=== PATIENT | female | born 1945 | race African-American/Black ===

== ENCOUNTER → 2016-12-08 | Outpatient (CLI) | payer MEDICARE, BC ==
[~2016-12-08] MED LIST: BRIMONIDINE TART5 ML OP; COMBIGAN EYE DRO5 ML OP; KLONOPIN PO; LATANOPROST2.5 ML OU; LEVOTHYROXINE75 MCG PO; MECLIZINE HCL12.5 M2 PO; MEDROL DOSEPAK4 MG PO; PLAVIX PO; SYNTHROID75 MCG PO; TIMOPTIC 0.5% OP5 M2 OD; TIMOPTIC2.5 ML OU; VITAMIN D-32000 UNI1 PO; VITAMIN D2000 UNI1 PO
--- NOTE | ~2016-12-08 | MY11 ---
[facility] A Service of [facility] & [facility] RADIOLOGY TEXT RESULTS PATIENT: DEVENDRA HARDY LOCATION: [facility] : [birth year] UNIT #: [id number] AGE: [address]: Agatha Avila MD SEX: F ORDER DR: [id number] [facility] [address] [place], [place] [address] [id number] O MR#: [id number] Acc #: [id number] NAME: DEVENDRA HARDY : 1945 SEX: F STUDY DATE/TIME: 12/08/2016 12:16 UNIT: [facility] ROOM: STUDY DESCRIPTION: MY Mammogram Screening Dig Wilfredo Attending Physician: Agatha Avila M.D. Referring Physician: Agatha Avila M.D. Ordering Physician: Agatha Avila M.D. Primary Care Physician: Agatha Avila M.D. MEDICAL IMAGING REPORT This report is preliminary unless electronic signature is present EXAM Bilateral digital screening mammogram with CAD. COMPARISON December 05, 2015, November 29, 2019, November 23, 2013, February 27, 2014, August 19, 2010. INDICATION 71-year-old asymptomatic female. No personal or family history of breast cancer. FINDINGS There are scattered fibroglandular densities. In the inferior posterior third of the right breast, only seen on the MLO view, there is an incompletely included asymmetry, not seen on prior exams, measuring up to approximately 4 mm. In the medial posterior third of the left breast only seen on the CC projection, there is a separate, possibly developing asymmetry or possibly a previous excluded asymmetry measuring up to 6 mm. IMPRESSION 1. Right breast asymmetry only seen on MLO view in the inferior aspect incompletely included. Further evaluation with spot compression right MLO view is recommended in addition to full field ML view, possibly followed by right breast ultrasound. 2. Left breast asymmetry only seen on CC view, developing from comparisons. Further evaluation with spot compression CC view as well as full field rolled medial and rolled lateral CC views is recommended, possibly followed by left breast ultrasound. Patients over the age of 40 are entered into a reminder system with target due date for the next mammogram. A result letter will also be sent to the patient. [facility] A Service of [facility] RADIOLOGY TEXT RESULTS PATIENT: DEVENDRA HARDY LOCATION: [facility] : [birth year] UNIT #: [id number] AGE: [address]: Agatha Avila MD SEX: F ORDER DR: BIRADS: 0 Incomplete; need additional imaging evaluation and/or prior mammograms for comparison. Dictated by... Ant Joseph M.D. THIS IS AN ELECTRONICALLY VERIFIED REPORT Ant Joseph M.D. at 12/10/2016 10:54 AM EDENILSON/lexie TD: 12/08/2016 15:52 JOB #: [id number] MEDICAL IMAGING REPORT Page 1 of 1 COPY
== END | disposition home or self-care (01) ==
LOC: CWCC 11:43
DX: Z12.31 Encounter for screening mammogram for malignant neoplasm of breast (principal); N64.89 Other specified disorders of breast
CPT/HCPCS: G0202

== ENCOUNTER → 2016-12-11 | Outpatient (CLI) | payer MEDICARE, BC ==
--- NOTE | ~2016-12-11 | MY6 ---
[facility] A Service of [facility] & [facility] RADIOLOGY TEXT RESULTS PATIENT: DEVENDRA HARDY LOCATION: [facility] : [birth year] UNIT #: [id number] AGE: [address]: Agatha Avila MD SEX: F ORDER DR: [id number] [facility] [address] [place], [place] [address] [id number] O MR#: [id number] Acc #: [id number] NAME: DEVENDRA HARDY : 1945 SEX: F STUDY DATE/TIME: 12/11/2016 12:40 UNIT: [facility] ROOM: STUDY DESCRIPTION: MY Mammogram Dx Dig Wilfredo Attending Physician: Agatha Avila M.D. Referring Physician: Agatha Avila M.D. Ordering Physician: Agatha Avila M.D. Primary Care Physician: Agatha Avila M.D. MEDICAL IMAGING REPORT This report is preliminary unless electronic signature is present EXAM Additional views of both breasts and a targeted left breast ultrasound, 12/11/2016. INDICATION Asymmetries in both breast on recent screening mammogram. TECHNIQUE Compression MLO and true lateral views of the right breast were performed. On the left, rolled CC views were performed along with a compression CC view. COMPARISONS 12/08/2016, 09/29/2013, 08/19/2010. FINDINGS MAMMOGRAPHIC FINDINGS Right breast: The asymmetry in the lower posterior hemisphere right breast has no correlate on the additional views. The patient denies any change or palpable abnormality. Given the lack of a mammographic correlate and lack of palpable area of concern, targeted ultrasound was not performed as it was not thought to offer additional diagnostic benefit. Left breast: The asymmetry in the posteromedial hemisphere left breast appears less conspicuous on spot compression. It is questionably present on the rolled views. Targeted ultrasound was thereafter performed. ULTRASOUND FINDINGS Left breast: Imaging of the left breast was performed initially by the technologist and then the patient was rescanned in my presence. Imaging of the medial hemisphere left breast from 12 o'clock to 6 o'clock is negative. There is a benign cyst in the subareolar left breast also seen on prior mammogram studies but there is no suspicious nodule, mass, or STS. [facility] A Service of [facility] RADIOLOGY TEXT RESULTS PATIENT: DEVENDRA HARDY LOCATION: [facility] : [birth year] UNIT #: [id number] AGE: [address]: Agatha Aivla MD SEX: F ORDER DR: area of persistent abnormal shadowing. Imaging findings are concordant with mammography. Absent new or worsening symptoms in either breast, patient should return for a screening mammogram in 1 year. Findings and recommendations were discussed with the patient. IMPRESSION 1. Additional views of the right breast are negative. Return to annual screening recommended. 2. Additional views of the left breast and targeted left breast ultrasound demonstrate a stable benign cyst in the subareolar left breast, also present on prior mammograms. Imaging of the left breast is otherwise negative. Return to annual screening is recommended. Patients over the age of 40 are entered into a reminder system with target due date for the next mammogram. A result letter will also be sent to the patient. BIRADS: 2 Benign finding. Dictated by... Alejo Howard M.D. THIS IS AN ELECTRONICALLY VERIFIED REPORT Alejo Howard M.D. at 12/11/2016 5:13 PM Lo TD: 12/11/2016 13:59 JOB #: [id number] MEDICAL IMAGING REPORT Page 1 of 1 COPY
--- NOTE | ~2016-12-11 | US24 ---
[facility] A Service of [facility] & [facility] RADIOLOGY TEXT RESULTS PATIENT: DEVENDRA HARDY LOCATION: [facility] : 47 UNIT #: [id number] AGE: [address]: Agatha Avila MD SEX: F ORDER DR: [id number] [facility] [address] [place], [place] [address] [id number] O MR#: [id number] Acc #: [id number] NAME: DEVENDRA HARDY : 1945 SEX: F STUDY DATE/TIME: 12/11/2016 13:15 UNIT: [facility] ROOM: STUDY DESCRIPTION: US Breast Unilateral Attending Physician: Agatha Avila M.D. Referring Physician: Agatha Avila M.D. Ordering Physician: Agatha Avila M.D. Primary Care Physician: Agatha Avila M.D. MEDICAL IMAGING REPORT This report is preliminary unless electronic signature is present EXAM Targeted left breast ultrasound 12/11/2016 INDICATIONS Correlation with additional views left breast same date. FINDINGS Please see the mammogram for full report. BIRADS: 2 Benign finding. Dictated by... Alejo Howard M.D. THIS IS AN ELECTRONICALLY VERIFIED REPORT Alejo Howard M.D. at 12/11/2016 5:14 PM Juanjose TD: 12/11/2016 15:46 JOB #: [id number] MEDICAL IMAGING REPORT Page 1 of 1 COPY
== END | disposition home or self-care (01) ==
LOC: CMAM 12:06
DX: R92.8 Other abnormal and inconclusive findings on diagnostic imaging of breast (principal); N60.02 Solitary cyst of left breast
CPT/HCPCS: 76641; G0204